=== PATIENT | female | born 1935 | race Caucasian/White ===

== ENCOUNTER 2017-04-25 15:04 | Outpatient (CLI) | payer MEDICARE ==
--- NOTE | 2017-04-25 16:44 | Diagnostic Imaging Report ---
Indication: Cough Technique: 2 views of the chest Comparison: None Findings: Lungs and pleural spaces are clear except for minimal biapical pleural scarring. The heart size is normal. The bones are unremarkable. No significant interim change. Impression: Negative
== END 2017-04-25 17:04 | disposition home or self-care (01) ==
LOC: RAD 15:04
DX: R05 Cough (principal)
CPT/HCPCS: 71046

== ENCOUNTER 2018-03-27 16:07 | Outpatient (CLI) | payer MEDICARE, BC ==
--- NOTE | 2018-03-27 17:59 | Diagnostic Imaging Report ---
Indication: Cough Technique: 2 views of the chest Comparison: 04/25/2017 Findings: Lungs and pleural spaces are clear. The heart size is normal. There is biapical pleural scarring again demonstrated The bones are unremarkable. No significant interim change. Impression: No acute process
== END 2018-03-27 18:07 | disposition home or self-care (01) ==
LOC: RAD 16:07
DX: R05 Cough (principal)
CPT/HCPCS: 71046